=== PATIENT | male | born 1960 | race Caucasian/White ===

== ENCOUNTER 2017-01-11 08:45 | Emergency (ER) | payer BC ==
[2017-01-11] MEDS ORDERED: Sodium Chloride 0.9% 10 ML Syringe FLUSH PRN (08:58)
[2017-01-11] MEDS ORDERED: Famotidine 20 MG/2 ML SDV IVPUSH ONE ×2 (08:59→09:38)
--- NOTE | 2017-01-11 09:21 | EDM.PDOC ---
ED HPI GENERAL MEDICAL PROBLEM - General Chief Complaint: Chest Pain Stated Complaint: [facility] Time Seen by Provider: 01/11/17 08:51 Source of Information: Reports: Patient History Limitations: Reports: No Limitations - History of Present Illness INITIAL COMMENTS - FREE TEXT/NARRATIVE: The patient presents with right jaw pain and left sided chest pain. This stated last night and it got a little worse. He was traveling from [place] and called EMS in [place]. He has some mild nausea now. He denies fever, chills, cough, congestion, shortness of breath, abdominal pain or vomiting. He has no history of coronary artery disease. He did have a PFO that was fixed a few years ago. That caused a TIA. He had right sided weakness that totally resolved. He has no history of HTN. He does have hypercholesterolemia. He is on medication for that. He was given aspirin by EMS and a spray of nitro. That did not help much. He says it feels like he has to burp and describes the pain a pressure. Onset: Gradual Duration: Day(s): (Last night) Location: Reports: Chest (and right jaw) Quality: Reports: Pressure Severity: Mild Improves with: Reports: None Worsens with: Reports: None Associated Symptoms: Reports: Chest Pain. Denies: Cough, Fever/Chills, Headaches, Loss of Appetite, Nausea/Vomiting, Shortness of Breath Left Chest Pain Score (Numeric/FACES): 2 - Related Data Allergies Allergy/AdvReac Type Severity Reaction Status Date / Time oxycodone Allergy Tachycardia Verified 01/11/17 08:57 Home Meds: Home Meds Rosuvastatin [Crestor] 10 mg PO DAILY 01/11/17 [History] Past Medical History Cardiovascular History: Reports: High Cholesterol Neurological History: Reports: TIA - Past Surgical History GI Surgical History: Reports: Hernia, Abdominal Social & Family History - Family History Family Medical History: Noncontributory - Tobacco Use Smoking Status *Q: Current Every Day Smoker Years of Tobacco use: 16 Packs/Tins Daily: 0.3 - Caffeine Use Caffeine Use: Reports: Coffee - Recreational Drug Use Recreational Drug Use: No ED ROS GENERAL - Review of Systems Review Of Systems: See Below Constitutional: Reports: No Symptoms HEENT: Reports: Other (Right jaw pain) Respiratory: Reports: No Symptoms Cardiovascular: Reports: Chest Pain Endocrine: Reports: No Symptoms GI/Abdominal: Reports: No Symptoms : Reports: No Symptoms Musculoskeletal: Reports: No Symptoms Skin: Reports: No Symptoms Neurological: Reports: No Symptoms Psychiatric: Reports: No Symptoms ED EXAM, GENERAL - Physical Exam Exam: See Below Exam Limited By: No Limitations General Appearance: Alert, No Apparent Distress Ears: Normal External Exam Nose: Normal Inspection Head: Atraumatic, Normocephalic Neck: Normal Inspection Respiratory/Chest: No Respiratory Distress, Lungs Clear, Normal Breath Sounds Cardiovascular: Regular Rate, Rhythm, No Edema, No Murmur GI/Abdominal: Soft, Non-Tender, No Organomegaly, No Mass Back Exam: Normal Inspection Extremities: Normal Inspection Neurological: Alert, Oriented, No Motor/Sensory Deficits EKG INTERPRETATION EKG Date: 01/11/17 Time: 08:59 Rhythm: NSR Rate (Beats/Min): 64 [place]: Normal P-Wave: Present QRS: Normal ST-T: Normal QT: Normal Course - Vital Signs Last Recorded V/S: Last Vital Signs Temp 97.5 F 01/11/17 08:53 Pulse 68 01/11/17 08:53 Resp 16 01/11/17 08:53 BP 121/90 01/11/17 08:53 Pulse Ox 99 01/11/17 08:53 - Orders/Labs/Meds Orders: Active Orders 24 hr Category Date Time Status Cardiac Monitoring [RC] . DIRECTED Care 01/11/17 08:58 Active EKG Documentation Completion [RC] ASDIRECTED Care 01/11/17 11:16 Active EKG Documentation Completion [RC] STAT Care 01/11/17 08:59 Active Oxygen Therapy [RC] PRN Care 01/11/17 08:58 Active Peripheral IV Care [RC] . DIRECTED Care 01/11/17 08:59 Active Chest 1V Frontal [CR] Stat Exams 01/11/17 08:59 Taken Sodium Chloride 0.9% [Saline Flush] Med 01/11/17 08:58 Active 10 ml FLUSH ASDIRECTED PRN Peripheral IV Insertion Adult [OM.PC] Stat Oth 01/11/17 08:58 Ordered EKG 12 Lead [EK] Stat Ther 01/11/17 11:15 Ordered Medication Orders Sodium Chloride (Saline Flush) 10 ml FLUSH ASDIRECTED PRN PRN Reason: Keep Vein Open Last Admin: 01/11/17 09:06 Dose: 10 ml Labs: Laboratory Tests 01/11/17 01/11/17 01/11/17 Range/Units 09:10 09:10 11:26 WBC 5.56 (4.23-9.07) K/mm3 RBC 5.07 (4.63-6.08) M/mm3 Hgb 14.5 (13.7-17.5) gm/L Hct 43.1 (40.1-51.0) % MCV 85.0 (79.0-92.2) fl MCH 28.6 (25.7-32.2) pg MCHC 33.6 (32.2-35.5) g/dl RDW Std Deviation 43.0 (35.1-43.9) fL Plt Count 232 (163-337) K/mm3 MPV 9.3 L (9.4-12.3) fl Neut % (Auto) 77.3 H (34.0-67.9) % Lymph % (Auto) 12.6 L (21.8-53.1) % [place] % (Auto) 6.7 (5.3-12.2) % Eos % (Auto) 2.9 (0.8-7.0) Baso % (Auto) 0.5 (0.1-1.2) % Neut # (Auto) 4.30 (1.78-5.38) K/mm3 Lymph # (Auto) 0.70 L (1.32-3.57) K/mm3 [place] # (Auto) 0.37 (0.30-0.82) K/mm3 Eos # (Auto) 0.16 (0.04-0.54) K/mm3 Baso # (Auto) 0.03 (0.01-0.08) K/mm3 Sodium 140 (136-145) mEq/L Potassium 3.8 (3.5-5.1) mEq/L Chloride 106 (98-107) mEq/L Carbon Dioxide 23 (21-32) mEq/L Anion Gap 14.8 (5-15) BUN 13 (7-18) mg/dL Creatinine 1.2 (0.7-1.3) mg/dL Est Cr Clr Drug Dosing 75.44 mL/min Estimated GFR (MDRD) > 60 (>60) mL/min BUN/Creatinine Ratio 10.8 L (14-18) Glucose 157 H (74-106) mg/dL Calcium 8.7 (8.5-10.1) mg/dL Total Bilirubin 0.6 (0.2-1.0) mg/dL AST 18 (15-37) U/L ALT 27 (16-63) U/L Alkaline Phosphatase 76 (46-116) U/L Troponin I < 0.017 < 0.017 (0.00-0.056) ng/mL Total Protein 6.8 (6.4-8.2) g/dl Albumin 3.6 (3.4-5.0) g/dl Globulin 3.2 gm/dL Albumin/Globulin Ratio 1.1 (1-2) Meds: Medications Generic Name Dose Route Start Last Admin Trade Name Freq PRN Reason Stop Dose Admin Sodium Chloride 10 ml 01/11/17 08:58 01/11/17 09:06 Saline Flush FLUSH 10 ml ASDIRECTED PRN Administration Keep Vein Open Discontinued Medications Generic Name Dose Route Start Last Admin Trade Name Freq PRN Reason Stop Dose Admin Famotidine 20 mg 01/11/17 08:59 01/11/17 09:06 Pepcid IVPUSH 01/11/17 09:00 20 mg ONETIME ONE Administration Famotidine 20 mg 01/11/17 09:38 01/11/17 09:46 Pepcid IVPUSH 01/11/17 09:39 Not Given ONETIME ONE Hydromorphone HCl 0.5 mg 01/11/17 09:38 01/11/17 09:46 Dilaudid IVPUSH 01/11/17 09:39 Not Given ONETIME ONE - Re-Assessments/Exams Free Text/Narrative Re-Assessment/Exam: 01/11/17 09:22 I ordered an IV saline lock, EKG, and labs. 01/11/17 10:06 His EKG shows a NSR with no acute changes. His CXR looks good. His CBC looks good. His CMP looks good. His blood sugar was a little high at 157. His troponin is negative. He feels better. His blood pressure was elevated when EMS saw him but that is better. I will do a repeat EKG and troponin shortly. 01/11/17 12:17 His repeat EKG shows NSR with no acute changes. His repeat troponin was negative. He feels better. I will discharge him home. Departure - Departure Time of Disposition: 12:20 Disposition: Home, Self-Care 01 Condition: Good Clinical Impression: Chest pain Qualifiers: Chest pain type: unspecified Qualified Code(s): R07.9 - Chest pain, unspecified Referrals: PCP,Not In Area [Primary Care Provider] - Forms: ED Department Discharge Additional Instructions: Take your medication as prescribed. Follow up with your doctor next week. Please return if you are worse. - My Orders Last 24 Hours: My Active Orders 01/11/17 08:58 Cardiac Monitoring [RC] . DIRECTED Oxygen Therapy [RC] PRN Sodium Chloride 0.9% [Saline Flush] 10 ml FLUSH ASDIRECTED PRN Peripheral IV Insertion Adult [OM.PC] Stat 01/11/17 08:59 EKG Documentation Completion [RC] STAT Peripheral IV Care [RC] . DIRECTED Chest 1V Frontal [CR] Stat 01/11/17 11:15 EKG 12 Lead [EK] Stat 01/11/17 11:16 EKG Documentation Completion [RC] ASDIRECTED - Assessment/Plan Last 24 Hours: My Active Orders 01/11/17 08:58 Cardiac Monitoring [RC] . DIRECTED Oxygen Therapy [RC] PRN Sodium Chloride 0.9% [Saline Flush] 10 ml FLUSH ASDIRECTED PRN Peripheral IV Insertion Adult [OM.PC] Stat 01/11/17 08:59 EKG Documentation Completion [RC] STAT Peripheral IV Care [RC] . DIRECTED Chest 1V Frontal [CR] Stat 01/11/17 11:15 EKG 12 Lead [EK] Stat 01/11/17 11:16 EKG Documentation Completion [RC] ASDIRECTED
[2017-01-11] MEDS ORDERED: HYDROmorphone 0.5 MG/0.5 ML Syringe IVPUSH ONE (09:38)
--- NOTE | 2017-01-13 09:18 | CR ---
Chest: Portable view of the chest was obtained. Comparison: No prior study. Elevated right hemidiaphragm is seen which is felt to be incidental. Lungs are clear with no acute parenchymal densities. Heart size is normal. Mild tortuosity of the thoracic aorta is seen. Bony structures are grossly intact. Impression: 1. Nothing acute is identified on portable chest x-ray. Note: This exam has only now been submitted for final interpretation. Diagnostic code #2
== END 2017-01-11 12:30 | disposition home or self-care (01) ==
LOC: JD.ED 08:45
DX: R07.9 Chest pain, unspecified (principal); F17.210 Nicotine dependence, cigarettes, uncomplicated; Z88.5 Allergy status to narcotic agent
CPT/HCPCS: 36415; 71010; 80053; 84484; 85025; 93005; 96374; 99285; J7050; 93010